=== PATIENT | male | born 1980 | race Two or more races ===

== ENCOUNTER 2016-12-21 01:22 | Emergency (ER) | payer OTHER ==
[~2016-12-21] VITALS: Ht 175.3 cm; Wt 80.9 kg
[2016-12-21] MEDS ORDERED: IBUPROFEN 800MG TABLET PO ONE (04:00)
[2016-12-21 04:08] VITALS: BP 123/75
== END 2016-12-21 05:45 | disposition home or self-care (01) ==
LOC: ER 05:41
DX: R51 Headache (principal); V43.52XA Car driver injured in collision with other type car in traffic accident, initial encounter; Y92.488 Other paved roadways as the place of occurrence of the external cause
CPT/HCPCS: 99282